=== PATIENT | male | born 2000 | race Caucasian/White ===

== ENCOUNTER 2023-04-01 16:33 | Emergency (ER) | payer BC, SELFPAY ==
[~2023-04-01] VITALS: Ht 172.7 cm; Wt 77.3 kg
[~2023-04-01 16:33] MED LIST: ACET1TAB14 PO; DIVA500T58 PO; SERT-153 PO
[2023-04-01] MEDS ORDERED: normal saline 1000ml 1,000 ML IV ONE (17:00)
--- NOTE | 2023-04-01 17:47 | NUR ---
Attempted to draw blood from patient's IV for lab work, IV wouldn't draw. Patient refused straight stick for lab states "i just want to go home".
[2023-04-01 18:17] VITALS: BP 110/68
== END 2023-04-01 18:18 | disposition left against medical advice (07) ==
LOC: ER 16:34
DX: R55 Syncope and collapse (principal); E86.0 Dehydration; F12.90 Cannabis use, unspecified, uncomplicated
CPT/HCPCS: 99284; J7030